=== PATIENT | female | born 1965 | race Caucasian/White ===

== ENCOUNTER → 2017-04-24 | Outpatient (CLI) | payer OTHER | LOC: BMCIMAGING 09:48 | PROVIDERS: ATTEND Advanced Practice Midwife | DX: Z03.89 Encounter for observation for other suspected diseases and conditions ruled out (principal) ==

== ENCOUNTER 2018-07-23 01:03 | Emergency (ER) | payer OTHER ==
--- NOTE | 2018-07-23 01:35 | EDPHY ---
H & P Stated Complaint: THROAT PAIN MOVED INTO CHEST, SOB AND COUGH Time Seen by Provider: 07/23/18 01:34 HPI/ROS: Chief Complaint: Shortness of breath and cough HPI: 53-year-old female comes in with increasing dyspnea, that started with sore throat 3 days ago, 20 days ago took amox and 1 week ago again took amoxicillin d/t dental infxn. She has had a Productive cough. No CP. She states she tried CBD oil herbal product but this made her feel dizzy PMH:Pneumonia in past that felt similar to this Social History: _ Tobacco, rare CBD orally and rare Alcohol: ROS: Neuro: No headache, lip and gum tingling Constitutional: No Fever- has been warm, + dizziness after CBD ENT: No runny nose, +ear pain pain and sore throat Cardiac: No Chest Pain Pulmonary: Positive Shortness of Breath GI: No abdominal Pain Skin: No rash Heme: No easy bruising : No urinary problems Eyes: No vision problems Musculoskeletal: No joint pains Complete Review of systems negative except as noted above Physical Exam: General: Alert appears uncomfortable hand appears disease Eyes: no icterus or pallor ENT: Mouth: Mucus membranes moist Neck: supple, no lymph nodes, no vertebral tenderness, no meningeal signs Lungs mild rales and rhonchi, right posterior mid lung rowe with mild respiratory distress with tachypnea, normal pulse ox Cardiac: Normal pulses, normal rate, normal rhythm, normal heart sounds GI: Abd Soft, non tender, no distention Back: Normal inspection, nml ROM, No CVAT, no vertebral tenderness Extremities: No swelling, nml ROM Skin: Warm, pink and dry, no rash, normal turgor Neuro: A&Ox3, MAEE, Nml Speech Reevaluations, MDM, and data interpretation Data Interpretation XR Independently viewed by me shows no evidence of pneumonia. ED Course Initial Eval: Pt greeted and advised about plan for care. Patient given an albuterol neb and chest x-ray ordered. Reevaluation On re-evaluation the patient is now having more productive cough though she states she does not really feel much better. I discussed the plan what she could expect and what to return for including pneumonia warnings and she stable for discharge Medical Decision Making Differential Diagnosis and MDM: 53-year-old female with productive cough and dyspnea differential diagnosis includes pneumonia, bronchitis, upper respiratory infection, and reactive airways. Patient's chest x-ray shows no sign of pneumonia. I think it is very unlikely she has an [place] or CHF given her infectious symptoms and I think she is stable for outpatient management. - Personal History LMP (Females 10-55): Irregular Current Tetanus/Diphtheria Vaccine: Yes Current Tetanus Diphtheria and Acellular Pertussis (TDAP): Yes - Medical/Surgical History Hx Asthma: No Hx Chronic Respiratory Disease: No Hx Diabetes: No Hx Cardiac Disease: No Hx Renal Disease: No Hx Cirrhosis: No Hx Alcoholism: No Hx HIV/AIDS: No Hx Splenectomy or Spleen Trauma: No Other PMH: nil - Social History Smoking Status: Never smoked Constitutional: Initial Vital Signs Temperature (C) 36.7 C 07/23/18 01:05 Heart Rate 95 07/23/18 01:05 Respiratory Rate 18 07/23/18 01:05 Blood Pressure 121/73 H 07/23/18 01:05 O2 Sat (%) 99 07/23/18 01:05 O2 Delivery Mode Room Air Allergies/Adverse Reactions: No Known Allergies Allergy (Unverified 07/23/18 01:08) Home Medications: Medication Instructions Recorded Albuterol Sulfate [Albuterol 8.5 gm IH Q4HRS* 1 Days hfa.aer.ad 07/23/18 Sulfate Hfa] Medical Decision Making - Data Points Medications Given: Discontinued Medications Albuterol (Proventil Neb) 3 ml IH EDNOW ONE Stop: 07/23/18 01:47 Last Admin: 07/23/18 01:54 Dose: 3 ml Departure - Departure Disposition: Home, Routine, Self-Care Clinical Impression: Acute bronchitis Condition: Good Instructions: Acute Bronchitis (ED) Referrals: NONE *PRIMARY CARE P,. [Primary Care Provider] - As per Instructions Prescriptions: Albuterol Sulfate [Albuterol Sulfate Hfa] 8.5 gm IH Q4HRS* 1 Days hfa.aer.ad
[2018-07-23] MEDS ORDERED: ALBUTEROL 3 ML DEYVIAL IH ONE (01:46)
[2018-07-23 03:09] VITALS: BP 100/59
== END 2018-07-23 03:09 | disposition home or self-care (01) ==
DX: J20.9 Acute bronchitis, unspecified (principal)
CPT/HCPCS: J7613